=== PATIENT | male | born 2005 | race Caucasian/White ===

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

== ENCOUNTER 2023-09-01 23:09 | Emergency (ER) | payer OTHER ==
[~2023-09-01] VITALS: Ht 172.7 cm; Wt 117.9 kg
[~2023-09-01 23:09] MED LIST: ALBUTEROL1.25 MG/3; BUDEO.25; ZITHROMAX500 MG
[2023-09-02] MEDS ORDERED: DICLOFENAC POTA50 MG PO (02:49)
[2023-09-02] MEDS ORDERED: CYCLOBENZAPRINE5 MG PO (02:49)
== END 2023-09-02 03:08 | disposition home or self-care (01) ==
LOC: ER 23:09 → EMR PED 23:13 → ER 23:13 → EMR PED 09-02 03:08
DX: S00.93XA Contusion of unspecified part of head, initial encounter (principal); W18.30XA Fall on same level, unspecified, initial encounter; Y93.9 Activity, unspecified; Y92.9 Unspecified place or not applicable; Y99.9 Unspecified external cause status; R55 Syncope and collapse